=== PATIENT | female | born 1985 | race Caucasian/White ===

== ENCOUNTER 2018-02-01 00:34 | Emergency (ER) | payer BC ==
[2018-02-01 01:21] VITALS: BP 151/86; PULSE 75; TEMP 98.2; BMI 28.3
--- NOTE | 2018-02-01 02:01 | PDOC ---
History of Present Illness <Jesica Vernon - Last Filed: 02/01/18 02:00> - General History Source: Patient Exam Limitations: No Limitations - History of Present Illness Initial Comments: 02/01/18 03:50 Patient is a 32 year old female with no significant past medical history who presents to the ED with complaints of Bartholin catheter removal that occurred just prior to ED arrival. Patient was seen in the ED earlier today for a Bartholin cyst that was incised and drained before being discharged home. She reports Bartholin catheter that was placed, became dislodged prompting her to come into the ED to have it replaced. Denies chest pain, Sob. Denies nausea, vomiting. Denies fevers, chills. Denies any other symptoms. Allergies: Allergies Social history: No smoking. No alcohol. No illicit drugs. Surgical history: None PMD: Dr. Kim <Jerry Martinez - Last Filed: 02/01/18 03:51> - General Chief Complaint: Wound Stated Complaint: REVISIT Time Seen by Provider: 02/01/18 01:22 Past History - Past Medical History COPD: No Thyroid Disease: (denies) - Immunization History Immunization Up to Date: Yes - Suicide/Smoking/Psychosocial Hx Smoking History: Never smoked Have you smoked in the past 12 months: No Information on smoking cessation initiated: No Hx Alcohol Use: No Drug/Substance Use Hx: No Substance Use Type: None <Jesica Vernon - Last Filed: 02/01/18 02:00> <Jerry Martinez - Last Filed: 02/01/18 03:51> - Past Medical History Allergies/Adverse Reactions: Allergies Allergy/AdvReac Type Severity Reaction Status Date / Time No Known Allergies Allergy Verified 02/01/18 01:19 Home Medications: Ambulatory Orders No Home Medications 0 dose .ROUTE UTDICT 11/10/13 Review of Systems - Review of Systems Able to Perform ROS?: Yes Comments:: 02/01/18 03:51 GENERAL/CONSTITUTIONAL: No fever or chills. No weakness. HEAD, EYES, EARS, NOSE AND THROAT: No change in vision. No ear pain or discharge. No sore throat. GASTROINTESTINAL: No nausea, vomiting, diarrhea or constipation. GENITOURINARY: No dysuria, frequency, or change in urination. CARDIOVASCULAR: No chest pain or shortness of breath. RESPIRATORY: No cough, wheezing, or hemoptysis. MUSCULOSKELETAL: No joint or muscle swelling or pain. No neck or back pain. SKIN: No rash NEUROLOGIC: No headache, vertigo, loss of consciousness, or change in strength/ sensation. ENDOCRINE: No increased thirst. No abnormal weight change. HEMATOLOGIC/LYMPHATIC: No anemia, easy bleeding, or history of blood clots. ALLERGIC/IMMUNOLOGIC: No hives or skin allergy. <Jerry Martinez - Last Filed: 02/01/18 03:51> *Physical Exam - Vital Signs Last Vital Signs Temp Pulse Resp BP Pulse Ox 98.2 F 75 20 151/86 99 02/01/18 00:40 02/01/18 00:40 02/01/18 00:40 02/01/18 00:40 02/01/18 00:40 <Jesica Vernon - Last Filed: 02/01/18 02:00> - Vital Signs Last Vital Signs Temp Pulse Resp BP Pulse Ox 98.2 F 75 20 151/86 99 02/01/18 00:40 02/01/18 00:40 02/01/18 00:40 02/01/18 00:40 02/01/18 00:40 <Jerry Martinez - Last Filed: 02/01/18 03:51> *DC/Admit/Observation/Transfer - Discharge Dispostion Admit: No <Jesica Vernon - Last Filed: 02/01/18 02:00> - Attestations Scribe Attestion: 02/01/18 03:51 Documentation prepared by Jerry Martinez, acting as director medical safety for Jesica Vernon MD, MD/DO. <Jerry Martinez - Last Filed: 02/01/18 03:51> Diagnosis at time of Disposition: Bartholin gland cyst - Discharge Dispostion Disposition: HOME Condition at time of disposition: Stable - Referrals Referrals: Nelson Kmi [Primary Care Provider] - - Patient Instructions Printed Discharge Instructions: DI for Bartholin Gland Cyst - Post Discharge Activity
== END 2018-02-01 02:05 | disposition home or self-care (01) ==
LOC: JER 00:34
DX: N75.0 Cyst of Bartholin's gland (principal); Z48.03 Encounter for change or removal of drains
CPT/HCPCS: 99282-25

== ENCOUNTER 2018-05-16 01:08 | Emergency (ER) | payer BC ==
--- NOTE | 2018-05-16 01:24 | PDOC ---
History of Present Illness - General Stated Complaint: SIDE PAIN Time Seen by Provider: 05/16/18 01:15 History Source: Patient Exam Limitations: No Limitations - History of Present Illness Initial Comments: 05/16/18 01:21 32f with pmh of bartholin cyst presents to the ED for left sided flank pain since 5pm today. 05/16/18 01:24 Past History - Past Medical History Allergies/Adverse Reactions: Allergies Allergy/AdvReac Type Severity Reaction Status Date / Time No Known Allergies Allergy Verified 05/16/18 01:24 Home Medications: Ambulatory Orders Acetaminophen [Tylenol -] 1,000 mg PO ONCE 05/16/18 COPD: No Thyroid Disease: (denies) - Immunization History Immunization Up to Date: Yes - Suicide/Smoking/Psychosocial Hx Smoking History: Never smoked Have you smoked in the past 12 months: No Hx Alcohol Use: No Drug/Substance Use Hx: No Substance Use Type: None Review of Systems - Review of Systems Able to Perform ROS?: Yes Is the patient limited Tajik proficient: No Constitutional: No: Symptoms Reported HEENTM: No: Symptoms Reported Respiratory: No: Symptoms reported Cardiac (ROS): No: Symptoms Reported ABD/GI: Yes: See HPI : No: Burning, Dysuria, Incontinence Musculoskeletal: No: See HPI Neurological: No: Symptoms reported All Other Systems: Reviewed and Negative *Physical Exam - Physical Exam General Appearance: Yes: Nourished, Appropriately Dressed. No: Apparent Distress HEENT: positive: EOMI, RUSTAM, Normal ENT Inspection Respiratory/Chest: positive: Lungs Clear, Normal Breath Sounds. negative: Chest Tender, Respiratory Distress Cardiovascular: positive: Regular Rhythm, Regular Rate, S1, S2 Gastrointestinal/Abdominal: positive: Normal Bowel Sounds, Flat, Soft. negative : Tender Musculoskeletal: positive: Normal Inspection. negative: CVA Tenderness Extremity: positive: Normal Capillary Refill, Normal Inspection, Normal Range of Motion Integumentary: positive: Normal Color, Dry, Warm Neurologic: positive: Fully Oriented, Alert, Normal Mood/Affect, Normal Response , Motor Strength 5/5 Medical Decision Making - Medical Decision Making 05/16/18 04:02 Blood in [facility] renal negative for stone. Presence of ovarian cysts. 2.5cm left ovarian cyst. Small right ovarian cyst noted. *DC/Admit/Observation/Transfer Diagnosis at time of Disposition: Ovarian cyst - Discharge Dispostion Disposition: HOME Condition at time of disposition: Improved Decision to Admit order: No - Referrals Referrals: Nelson Kim [Primary Care Provider] - - Patient Instructions Printed Discharge Instructions: Ovarian Cyst Additional Instructions: Come back to the emergency department for any new, worsening or concerning symptom. Follow up with your OBGYN within 4 days. - Post Discharge Activity
[2018-05-16 01:26] VITALS: BP 115/78; PULSE 85; TEMP 97.6; BMI 30.1
[2018-05-16 01:39] LABS: URINE APPEARANCE SLCLOUDY; URINE BILIRUBIN NEGATIVE (<2.0 mg/dL); URINE COLOR LTYELLOW; URINE GLUCOSE (UA) NEGATIVE (NEGATIVE); URINE KETONE NEGATIVE (NEGATIVE); URINE NITRITE NEGATIVE (NEGATIVE); URINE PROTEIN NEGATIVE (NEGATIVE); URINE UROBILINOGEN NEGATIVE mg/dL (0.2-1.0)
[2018-05-16 01:43] LABS: URINE LEUK ESTERASE 3+ (NEGATIVE)
--- NOTE | 2018-05-16 01:46 | PDOC ---
Attending Attestation - ED Attending Attestation I have performed the following: I have examined & evaluated the patient, The case was reviewed & discussed with the resident, I agree w/resident's findings & plan, Exceptions are as noted - HPI HPI: 05/16/18 01:48 The patient is a 32 year old female, with a significant past medical history of Bartholin's gland cysts, who presents to the emergency department with, 8 hours of sudden onset lower left quadrant back and flank pain. She describes her pain as radiating to the right front. She has never had kidney stones in the past. She denies recent fevers, chills, headache or dizziness. She denies recent nausea, vomit, diarrhea or constipation. She denies recent dysuria, frequency, urgency or hematuria. She denies recent chest pain or shortness of breath. Allergies: NKA Past surgical history: None reported. Social history: Nonsmoker. Denies EtOH use and recreational drug use. Primary Care Physician: Dr. Kim <Aj Dejesus - Last Filed: 05/16/18 01:47> - Resident Resident Name: Rogers Allison - Physicial Exam PE: 05/19/18 20:04 *Physical Exam General Appearance: Yes: Appropriately Dressed. No: Apparent Distress, Intoxicated HEENT: positive: EOMI, RUSTAM, Normal ENT Inspection, Normal Voice, TMs Normal, Pharynx Normal. negative: Pale Conjunctivae, Photophobia, Scleral Icterus (R), Scleral Icterus (L) Neck: positive: Trachea midline, Normal Thyroid, Supple. negative: Tender, Rigid, Carotid bruit, Stridor, Lymphadenopathy (R), Lymphadenopathy (L), Thyromegaly Respiratory/Chest: positive: Lungs Clear, Normal Breath Sounds. negative: Chest Tender, Respiratory Distress, Accessory Muscle Use, Labored Respiration, RES, Crackles, Rales, Rhonchi, Stridor, Wheezing, Dullness Cardiovascular: positive: Regular Rhythm, Regular Rate, S1, S2. negative: Edema , JVD, Murmur, Bradycardia, Tachycardia Vascular Pulses: Dorsalis-Pedis (R): 2+, Doralis-Pedis (L): 2+ Gastrointestinal/Abdominal: positive: Normal Bowel Sounds, Flat, Soft. negative : Tender, Organomegaly, Pulsatile Mass, Increased Bowel Sounds, Decreased BS, Distended, Guarding, Rebound, Hernia, Hepatomegaly, Spleenomegaly Lymphatic: negative: Adenopathy, Tenderness Musculoskeletal: positive: Normal Inspection. negative: CVA Tenderness, Decreased Range of Motion Extremity: positive: Normal Capillary Refill, Normal Inspection, Normal Range of Motion, Pelvis Stable. negative: Tender, Pedal Edema, Swelling, Erythema Integumentary: positive: Normal Color, Dry, Warm. negative: Cyanotic, Erythema , Jaundice, Rash Neurologic: positive: spinal surgeon II-XII NML intact, Fully Oriented, Alert, Normal Mood/ Affect, Motor Strength 5/5. negative: EOM Palsy, Facial Droop, Sensory Deficit - Medical Decision Making 05/19/18 20:05 Pt treated and released <Dar Rangel - Last Filed: 05/19/18 20:05> Attestations - Attestations 05/16/18 01:48 Documentation prepared by Aj Dejesus, acting as certified medical aide for Dar Rangel DO. <Aj Dejesus - Last Filed: 05/16/18 01:47>
[2018-05-16 01:48] LABS: EPI CELLS RARE /HPF (FEW)
[2018-05-16] MEDS ORDERED: SODIUM CHLORIDE 1,000 ML IV STA (01:58)
[2018-05-16] MEDS ORDERED: KETOROLAC TROMETHAMINE 15 MG/ML VIAL IVPUSH ONE (01:58)
[2018-05-16] MEDS ORDERED: KETOROLAC TROMETHAMINE 15 MG/ML VIAL ONE (02:19)
--- NOTE | 2018-05-19 11:38 | PDOC ---
Patient Follow-up (Call Back) - Post ED Follow - Up Condition at time of discharge: Improved Disposition at time of original discharge: HOME Reason for Call Back: Abnwl. Microbiology (Staph sapro on ucx, sen to bactrim, macrobid, cipro and levaquin Pt not on abx Called and unable to l/m, VM full)
== END 2018-05-16 04:12 | disposition home or self-care (01) ==
LOC: JER 01:08
PROC: 3E0333Z Introduction of Anti-inflammatory into Peripheral Vein, Percutaneous Approach (ICD-10-PCS; principal; 2018-05-16)
DX: N83.202 Unspecified ovarian cyst, left side (principal)
CPT/HCPCS: 74176; 81003; 81015; 84703; 87086; 87186; 99282-25; J7030